=== PATIENT | female | born 1985 | race Caucasian/White ===

== ENCOUNTER 2017-02-16 16:01 | Emergency (ER) | payer BC, SELFPAY | END 2017-02-16 16:40 | disposition home or self-care (01) | DX: J01.00 Acute maxillary sinusitis, unspecified (principal) | CPT/HCPCS: 87804; 87880 ==

== ENCOUNTER 2017-04-17 14:46 | Emergency (ER) | payer BC, SELFPAY ==
[2017-04-17 15:19] VITALS: BP 110/72; PULSE 82; RESP 20; TEMP 36.8; O2SAT 98; BMI 27.3
--- NOTE | 2017-04-17 15:37 | HMH.EDUTC ---
[facility] [place] Disposition Clinical Impression: Upper respiratory infection Qualifiers: URI type: unspecified URI Qualified Code(s): J06.9 - Acute upper respiratory infection, unspecified Disposition: Home, Self-Care Condition on Discharge: Good Instructions: DI for Sinusitis, Sinusitis Additional Instructions: Start antibiotic. Sinus infections may take 2-3 days to notice much improvement so be sure to use conservative measures as discussed for symptoms Flonase 2 spray in each nostril daily to help with nasal congestion, sinus an ear pressure/inflammation Lots of Fluids Sleep elevated Humidifer/vaporizer Prescriptions: Azithromycin [Z-Atif 250mg Tab] 250 mg PO UD DOSE PK #6 tab Fluticasone Propionate [Flonase 50mcg nasal spray 16gm] 2 spr NS DAILY #1 bottle predniSONE [Prednisone 20mg Tab] 20 mg PO BID #10 tab Referrals: Provider,Referral, MD [Primary Care Provider] - Time of Disposition: 15:42 Medical Decision Making - Medical Records Medical records reviewed: Yes: I reviewed the patient's medical records. Vital Signs: 04/17/17 15:19 Temperature 98.2 F Temperature Source Temporal Artery Scan Pulse Rate [Right] 82 Respiratory Rate 20 Blood Pressure [Right Arm] 110/72 Blood Pressure Mean [Right Arm] 84 Blood Pressure Source [Right Arm] Automatic Cuff Blood Pressure Position [Right Arm] Sitting 02 Sat by Pulse Oximetry 98 Oxygen Delivery Method Room Air - John Inquiry Pt receiving controlled substance: No John was queried for this patient: No [facility] [place] HPI - General Stated complaint: sinus pressure Mode of Arrival: Ambulatory Source of Information: Patient Limitations: No Limitations Description of Symptoms (Recalled from Triage Doc. by RN): SINUS PROBLEMS HEENT Symptoms (Recalled from RN notes): Yes Resp Symptoms (Recalled from RN notes): No Skin Symptoms (Recalled from RN notes): No MS Symptoms (Recalled from RN notes): No Functional Status (Recalled from RN notes): N - History of Present Illness Provider Complaint: Patient state that she has been having sinus pain and pressure for several weeks States that now she is having pain and pressure feeling in her ears and worried that she may be getting a ear infection State that she use to have sinus infections frequently but it has been awhile and this one feels alot like they did - Related Data Previous Rx's Medication Instructions Recorded Azithromycin [Z-Atif 250mg Tab] 250 mg PO UD DOSE PK #6 tab 04/17/17 Fluticasone Propionate [Flonase 2 spr NS DAILY #1 bottle 04/17/17 50mcg nasal spray 16gm] predniSONE [Prednisone 20mg 20 mg PO BID #10 tab 04/17/17 Tab] Allergies Allergy/AdvReac Type Severity Reaction Status Date / Time amoxicillin [AMOXICILLIN] Allergy Mild Verified 04/17/17 15:22 - Worker's Comp Is this a Worker's Comp case?: No [facility] History I have reviewed the patient's past medical history: Yes - Social History Alcohol Intake: never - Psychiatric History Expresses thoughts of harming self/others: None Suicide Plan Description: No Plan ROS Obtained: Yes All systems reviewed & no additional complaints - ENT Ears, Nose, Mouth, and Throat: Reports otalgia, Reports sinus pain, Reports sinus pressure Physical Exam - General General appearance: alert, in no apparent distress - Expanded ENT Exam TM/Canal exam: Right TM: erythema (mild redness) Nose exam: Present: sinus tenderness (Tenderness maxillary sinus) - Respiratory Respiratory exam: Present: normal lung sounds bilaterally. Absent: respiratory distress - Cardiovascular Cardiovascular exam: Present: regular rate, normal rhythm. Absent: JVD - Neurological Exam Neurological exam: Present: alert, oriented X3
[2017-04-17 15:41] VITALS: BP 108/77; PULSE 80; RESP 18; TEMP 36.6
--- NOTE | 2017-04-17 15:41 | ED_ITS ---
[facility] [place] Disposition Clinical Impression: Upper respiratory infection Qualifiers: URI type: unspecified URI Qualified Code(s): J06.9 - Acute upper respiratory infection, unspecified Disposition: Home, Self-Care Condition on Discharge: Good Instructions: DI for Sinusitis, Sinusitis Additional Instructions: Start antibiotic. Sinus infections may take 2-3 days to notice much improvement so be sure to use conservative measures as discussed for symptoms Flonase 2 spray in each nostril daily to help with nasal congestion, sinus an ear pressure/inflammation Lots of Fluids Sleep elevated Humidifer/vaporizer Prescriptions: Azithromycin [Z-Atif 250mg Tab] 250 mg PO UD DOSE PK #6 tab Fluticasone Propionate [Flonase 50mcg nasal spray 16gm] 2 spr NS DAILY #1 bottle predniSONE [Prednisone 20mg Tab] 20 mg PO BID #10 tab Referrals: Provider,Referral, MD [Primary Care Provider] - Time of Disposition: 15:42 Medical Decision Making - Medical Records Medical records reviewed: Yes: I reviewed the patient's medical records. Vital Signs: 04/17/17 15:19 Temperature 98.2 F Temperature Source Temporal Artery Scan Pulse Rate [Right] 82 Respiratory Rate 20 Blood Pressure [Right Arm] 110/72 Blood Pressure Mean [Right Arm] 84 Blood Pressure Source [Right Arm] Automatic Cuff Blood Pressure Position [Right Arm] Sitting 02 Sat by Pulse Oximetry 98 Oxygen Delivery Method Room Air - John Inquiry Pt receiving controlled substance: No John was queried for this patient: No [facility] [place] HPI - General Stated complaint: sinus pressure Mode of Arrival: Ambulatory Source of Information: Patient Limitations: No Limitations Description of Symptoms (Recalled from Triage Doc. by RN): SINUS PROBLEMS HEENT Symptoms (Recalled from RN notes): Yes Resp Symptoms (Recalled from RN notes): No Skin Symptoms (Recalled from RN notes): No MS Symptoms (Recalled from RN notes): No Functional Status (Recalled from RN notes): N - History of Present Illness Provider Complaint: Patient state that she has been having sinus pain and pressure for several weeks States that now she is having pain and pressure feeling in her ears and worried that she may be getting a ear infection State that she use to have sinus infections frequently but it has been awhile and this one feels alot like they did - Related Data Previous Rx's Medication Instructions Recorded Azithromycin [Z-Atif 250mg Tab] 250 mg PO UD DOSE PK #6 tab 04/17/17 Fluticasone Propionate [Flonase 2 spr NS DAILY #1 bottle 04/17/17 50mcg nasal spray 16gm] predniSONE [Prednisone 20mg 20 mg PO BID #10 tab 04/17/17 Tab] Allergies Allergy/AdvReac Type Severity Reaction Status Date / Time amoxicillin [AMOXICILLIN] Allergy Mild Verified 04/17/17 15:22 - Worker's Comp Is this a Worker's Comp case?: No [facility] History I have reviewed the patient's past medical history: Yes - Social History Alcohol Intake: never - Psychiatric History Expresses thoughts of harming self/others: None Suicide Plan Description: No Plan ROS Obtained: Yes All systems reviewed & no additional complaints - ENT Ears, Nose, Mouth, and Throat: Reports otalgia, Reports sinus pain, Reports sinus pressure Physical Exam - General General appearance: alert, in no apparent distress - Expanded ENT E
== END 2017-04-17 15:58 | disposition home or self-care (01) ==
PROVIDERS: Emergency Provider Nurse Practitioner
DX: J06.9 Acute upper respiratory infection, unspecified (principal)
CPT/HCPCS: 99202

== ENCOUNTER → 2017-05-21 08:58 | Outpatient (CLI) | payer BC, SELFPAY ==
--- NOTE | 2017-05-21 09:01 | US_ITS ---
US gallbladder Ordering Physician: NGA Mccloud Patient Age: 31 years: Female HISTORY: ITS.REASON: RUQ pain Abdominal pain and reflux diarrhea. TECHNIQUE: ] RUQ Quadrant ultrasound COMPARISON :No relevant studies FINDINGS Pancreas unremarkable Liver. No focal lesions. No biliary ductal dilatation. On close inspection there is a mildly hyper echoic nodule the lateral right lobe towards dome of liver. 9.6 mm. Hyperechoic nodules tend to be more likely benign diameter such as might be seen with hemangioma specifically area of this age . No increased color Doppler flow air. (If desire to confirm stability Consider follow-up ultrasound in several months given its small size, or if desire a more definitive diagnosis a CT with contrast with hemangioma protocol would be suggested). . Portal vein is normal direction flow at the liver with normal caliber at the liver. Medial to the liver it becomes more generous caliber measuring 1.4 cm. Normal upper normal caliber and this region.. Gallbladder. Normal size. No gallstones. Borderline gallbladder wall thickening. Common duct. Normal but slight generous diameter nearly 5 mm at hilum of liver Right kidney normal 11.3 cm length. Cortex well-maintained. ===== IMPRESSION: ========= Gallbladder. No gallstones evident. No biliary ductal dilatation Liver. Small 5.5 mm hyperechoic nodule at periphery of right lobe liver towards the dome.. Hyperechoic nodules statistically in this younger age female are by far most likely benign liver hemangiomas.
== END ==
PROVIDERS: PCP Physician Assistant; Visit Provider Physician Assistant
DX: R10.11 Right upper quadrant pain (principal)
CPT/HCPCS: 76705

== ENCOUNTER → 2020-05-15 13:28 | Outpatient (CLI) | payer BC, SELFPAY | PROVIDERS: Visit Provider Nurse Practitioner Family | DX: Z20.822 Contact with and (suspected) exposure to COVID-19 (principal) | CPT/HCPCS: U0003 ==

== ENCOUNTER 2021-06-09 09:03 | Emergency (ER) | payer BC, SELFPAY ==
[2021-06-09 09:20] VITALS: BP 139/86; PULSE 86; RESP 16; TEMP 36.9; O2SAT 99; BMI 31.1
[2021-06-09 09:34] LABS: Strep Scrn Group A (Rapid) Negative (Negative)
--- NOTE | 2021-06-09 09:38 | HMH.EDUTC ---
[facility] [place] Clinical Impression: Sinusitis Qualifiers: Sinusitis location: unspecified location Chronicity: acute Recurrence: non-recurrent Qualified Code(s): J01.90 - Acute sinusitis, unspecified Disposition: Home, Self-Care Condition on Discharge: Good Instructions: Sinusitis, DI for Sinusitis Additional Instructions: Drink plenty of fluids. Take tylenol or ibuprofen for pain or fever. Take the medications as directed. Follow up with your regular doctor. GO TO THE ER FOR ANY WORSENING SYMPTOMS Don't start the oral steroids until tomorrow, since you had the shot here today. The cough medication (promethazine dm) will make you drowsy, so don't drive or operate heavy machinery after taking it. Prescriptions: Promethazine/Dextromethorphan [Promethazine-Dm Syrup] 5 ml PO Q6HP PRN #240 ml PRN Reason: Cough Transmission Status: Received by [id number] methylPREDNISolone [Medrol] 4 mg PO DIRECTED 6 Days #21 packet Transmission Status: Received by [id number] guaiFENesin [Mucinex 600mg tablet] 1 - 2 tab PO BIDP PRN #30 tab PRN Reason: Congestion Transmission Status: Received by [id number] Azithromycin [Z-Atif 250mg Tab*] 250 mg PO UD DOSE PK #6 tab Transmission Status: Received by [id number] Referrals: Provider,Referral, MD [Primary Care Provider] - Forms: Work/School Release Time of Disposition: 09:57 Medical Decision Making - Medical Records Medical records reviewed: No: I reviewed the patient's medical records. - John Inquiry Pt receiving controlled substance: No Vital Signs: 06/09/21 09:20 06/09/21 09:54 Temperature 98.4 F 98.4 F Temperature Source Oral Oral Pulse Rate 86 Pulse Rate [Left Radial] 86 Respiratory Rate 16 16 Blood Pressure 139/86 Blood Pressure [Right Arm] 139/86 Blood Pressure Mean [Right Arm] 103 02 Sat by Pulse Oximetry 99 - Lab Data Lab results reviewed: Yes: I reviewed the patient's lab results. Lab Results 06/09/21 09:16: Group A Strep Rapid Negative Orders (Tests/Meds): ED MEDICATIONS Discontinued Medications Generic Name Dose Route Start Last Admin Trade Name Freq PRN Reason Stop Dose Admin Methylprednisolone Sodium Succinate 125 mg 06/09/21 09:38 06/09/21 09:53 Methylprednisolone Sod Succ 125mg Vial IM 06/09/21 09:39 125 mg ONCE ONE Administration ORDERS Category Date Time Status Strep Screen Confirmation Stat Micro 06/09/21 09:16 Received [facility] [place] - General Stated complaint: sinus pressure, congestion, cough, fever Time Seen by Provider: 06/09/21 09:38 Mode of Arrival: Ambulatory Source of Information: Patient Limitations: No Limitations Description of Symptoms (Recalled from Triage Doc. by RN): pt states cough, congested, fever, body aches for 1 week. COVID and flu negative yesterday. HEENT Symptoms (Recalled from RN notes): No Resp Symptoms (Recalled from RN notes): Yes Skin Symptoms (Recalled from RN notes): No MS Symptoms (Recalled from RN notes): No Functional Status (Recalled from RN notes): wnl - History of Present Illness Provider Complaint: She states that for the past 1 week she has had fever, chills, malaise, and sore throat. - Related Data Previous Rx's Medication Instructions Recorded Azithromycin [Z-Atif 250mg Tab*] 250 mg PO UD DOSE PK #6 tab 06/09/21 Promethazine/Dextromethorphan 5 ml PO Q6HP PRN #240 ml 06/09/21 [Promethazine-Dm Syrup] guaiFENesin [Mucinex 600mg tablet] 1 - 2 tab PO BIDP PRN #30 tab 06/09/21 methylPREDNISolone [Medrol] 4 mg PO DIRECTED 6 Days #21 06/09/21 packet Allergies Allergy/AdvReac Type Severity Reaction Status Date / Time amoxicillin [AMOXICILLIN] Allergy Mild Verified 05/15/20 12:41 - Worker's Comp Is this a Worker's Comp case?: No Is this an H Worker's Comp?: No Is this a [place] Worker's Comp?: No [facility] History - Hepatitis A Screen Drug use history?: No High risk sexual
[2021-06-09 09:54] VITALS: BP 139/86; PULSE 86; RESP 16; TEMP 36.9
== END 2021-06-09 10:03 | disposition home or self-care (01) ==
PROVIDERS: Emergency Provider Nurse Practitioner Family
DX: J01.90 Acute sinusitis, unspecified (principal); E03.9 Hypothyroidism, unspecified; Z20.822 Contact with and (suspected) exposure to COVID-19; Z79.52 Long term (current) use of systemic steroids; Z88.0 Allergy status to penicillin; Z88.1 Allergy status to other antibiotic agents; Z88.3 Allergy status to other anti-infective agents
CPT/HCPCS: 87430; 96372; 96375; 99213; G0463